=== PATIENT | female | born 1990 | race African-American/Black ===

== ENCOUNTER 2018-10-19 20:35 | Emergency (ER) | payer SELFPAY ==
[2018-10-19 20:45] VITALS: BP 126/80; PULSE 81; TEMP 97.5
== END 2018-10-19 22:30 | disposition left against medical advice (07) ==
LOC: COL.ER 20:35
DX: S89.92XA Unspecified injury of left lower leg, initial encounter (principal); W19.XXXA Unspecified fall, initial encounter; Y92.59 Other trade areas as the place of occurrence of the external cause